=== PATIENT | male | born 1935 | race Caucasian/White ===

== ENCOUNTER 2017-12-01 17:55 | Observation (INO) | payer OTHER ==
[~2017-12-01] VITALS: Ht 170.2 cm; Wt 72.1 kg
[2017-12-01 18:20] LABS: ABSOLUTE BASOPHIL COUNT 0 /CUMM (0.0-0.2); ABSOLUTE EOSINOPHIL COUNT 0.3 /CUMM (0.0-0.7); ABSOLUTE LYMPH COUNT 1.1 /CUMM (1.2-3.4); ABSOLUTE MONOCYTE COUNT 0.9 /CUMM (0.10-0.60); BASOPHIL % 0.2 % (0.0-2.0); EOSINOPHIL % 4.9 % (0-5); GRANULOCYTE % 63.2 % (42.2-75.2); HEMATOCRIT 40.5 % (42-52); MEAN CORPUSCULAR HGB 30.6 PG (27.0-31.0); MEAN CORPUSCULAR VOLUME 92.7 FL (80.0-94.0); MEAN PLATELET VOLUME 7.8 FL (7.4-10.4); PLATELET COUNT 229 /CUMM (130-400); RBC DISTRIBUTION WIDTH 14.5 % (11.5-14.5); RED BLOOD CELL CT 4.37 /CUMM (4.70-6.10); WHITE BLOOD CELL COUNT 6.3 /CUMM (4.8-10.8)
--- NOTE | 2017-12-01 19:14 | RADIOLOGY REPORT ---
EXAMINATION: XR CHEST CLINICAL INFORMATION: Chest pain COMPARISON: None TECHNIQUE: 2 views of the chest were obtained. FINDINGS: The lungs are hyperinflated and diaphragms appear relatively flat. Trachea is midline in position. No evidence of interstitial lung disease, focal consolidation, mass , pneumothorax or pleural effusion. On the frontal view, the calcification projecting over the left anterior fourth rib and could represent costochondral junction calcification or a calcified pleural plaque. The cardiac silhouette is normal in size. The hilar contours are normal. The atherosclerotic aortic arch is slightly uncoiled. No acute skeletal findings. The visualized upper abdomen is unremarkable. IMPRESSION: 1. No acute cardiopulmonary findings. 2. Lungs appear hyperexpanded; chronic pulmonary emphysema is suspected.
--- NOTE | 2017-12-01 20:23 | ED CARDIAC/CP/PALPITATIONS ---
History of Present Illness General Chief Complaint: Chest Pain Stated Complaint: CP Source: patient, family, old records Exam Limitations: no limitations Vital Signs & Intake/Output Vital Signs & Intake/Output Vital Signs Date Time Temp Pulse Resp B/P B/P Pulse O2 O2 Flow FiO2 Mean Ox Delivery Rate 12/02 1055 76 12/02 0600 97.1 60 18 176/88 96 Room Air 12/02 0230 155/72 12/01 2353 170/82 12/01 2256 71 176/90 12/01 2256 97.3 71 18 176/90 97 Room Air 12/01 2149 180/76 12/01 2049 Room Air 12/01 2047 97.6 62 18 188/95 97 Room Air 12/01 1832 97.4 75 18 170/100 97 Room Air Room Air ED Intake and Output 12/02 0000 12/01 1200 Intake Total Output Total Balance Patient 72.121 kg Weight Weight Reported by Patient Measurement Method Allergies Coded Allergies: No Known Allergies (02/19/16) Reconcile Medications Lisinopril 10 MG TABLET 1 TAB PO DAILY htn (Reported) Triage Note: TRIAGE: 82 Y/O MALE PRESENTS C/O HIGH BLOOD PRESSURE, DIZZINESS LAST NIGHT. AT PRESENT, BP 170/100. Triage Nurses Notes Reviewed? 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 [place] dizzy and lightheaded last night, went to bed, and felt dizzy all day today, described as an unsteadiness. No vertigo. Also reports left perioral paresthesia. 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 Denies chest pain, palpitations, vertigo, vision changes, extremity weakness, numbness or paresthesia. Primary complaint is unsteadiness/dizziness. Had a similar episode years ago, seen at [facility] and sent home, never told he had a stroke or TIA. Past History Travel History Traveled to [place] past 21 day No Medical History Any Pertinent Medical History? see below for history Neurological: TRANSIENT GLOBAL AMNESIA EENT: glaucoma Cardiovascular: hypertension Respiratory: NONE Gastrointestinal: diverticulitis, GERD Hepatic: NONE Renal: KIDNEY STONE Musculoskeletal: NONE Psychiatric: NONE Endocrine: NONE Blood Disorders: NONE Cancer(s): SKIN CA, PROSTATE Surgical History Surgical History: N Psychosocial History What is your primary language Tunisian Tobacco Use: Never used ETOH Use: denies use Illicit Drug Use: denies illicit drug use Family History Hx Contributory? No Review of Systems Review of Systems Constitutional: Reports: no symptoms. EENTM: Reports: no symptoms. Respiratory: Reports: no symptoms. Cardiovascular: Reports: no symptoms. GI: Reports: no symptoms. Genitourinary: Reports: no symptoms. Musculoskeletal: Reports: no symptoms. Skin: Reports: no symptoms. Neurological/Psychological: Reports: no symptoms. Hematologic/Endocrine: Reports: no symptoms. Immunologic/Allergic: Reports: no symptoms. All Other Systems: Reviewed and Negative Physical Exam Physical Exam General Appearance: well developed/nourished, no apparent distress Head: atraumatic, normal appearance Eyes: Bilateral: normal appearance, PERRL, EOMI. 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 No CVA/TIA Diagnosis No Sepsis Present: No Sepsis Focused Exam Completed? No Progress Differential Diagnosis: AMI, aortic dissection, atrial fibrillation, cholecystitis, CHF/pulm edema, costochondritis, hyperkalemia, hypovolemia, hyperthyroid, hyperventilation, intracranial hemorrhage, musculoskeletal pain, myocarditis, pancreatitis, pericarditis, pneumonia, pneumothorax, PSVT, pulmonary embolism, PUD/GERD, PVCs/PACs, respiratory failure, rib fracture, sepsis, unstable angina, V-fib/V-Tach, WPW syndrome Plan of Care: Orders Procedure Date/time Status CBC WITHOUT DIFFERENTIAL 12/03 06 Active Heart Healthy Diet 12/02 B Active ECHOCARDIOGRAM 12/02 1227 Active Change service to 12/02 0750 Active TROPONIN LEVEL 12/02 06 Complete LIPID PANEL 12/02 06 Complete GLYCOSYLATED HGB 12/02 06 Complete CBC WITHOUT DIFFERENTIAL 12/02 06 Active BASIC ELECTROLYTES PLUS BUN&CR 12/02 06 Complete EKG 12/02 06 Active Lab Add-on Test 12/02 0239 Active TROPONIN LEVEL 12/02 0017 Complete EKG 12/02 0017 Active [id number] DOPPLER 12/02 UNK Active Gait Training, 15 Min 12/02 UNK Complete PT EVAL LOW COMPLEX 20 MIN 12/02 UNK Complete Lab Add-on Test 12/02 UNK Active OT EVAL LOW COMPLEX 30 MIN 12/02 UNK Complete Teach/Educate 12/01 2328 Active Pain Treatment and Response 12/01 2327 Active Nutritional Intake, Monitor 12/01 2328 Active Isolation 12/01 2328 Active Patient Care Conference 12/01 2328 Active NIH Stroke Scale 12/01 2258 Active Pathway - chart 12/01 223 Active House Staff 12/01 2233 Active Patient Data 12/01 223 Active Code Status 12/01 2233 Active Patient Data 12/[address] in observation 12/01 2203 Active ED Holding Orders 12/01 2203 Active Vital Signs 12/01 220 Active Code Status 12/01 2203 Complete Intake & Output 12/01 1831 Active PHOSPHORUS 12/01 1812 Complete MAGNESIUM 12/01 1812 Complete THYROID STIMULATING HORMONE 12/01 1805 Complete TROPONIN LEVEL 12/01 1805 Complete FREE T4 12/01 1805 Complete D-DIMER 12/01 1805 Complete COMPREHENSIVE METABOLIC PANEL 12/01 1805 Complete CBC WITHOUT DIFFERENTIAL 12/01 1805 Complete EKG 12/01 1757 Active PT Evaluate & Treat 12/01 UNK Active Occupational Tx Eval & Treat 12/01 UNK Active VTE Mechanical Prophylaxis 12/01 UNK Active Vital Signs 12/01 UNK Complete MISTAKE 12/01 UNK Complete Telemetry/Vending Supervisor 12/01 UNK Active Activity/Ambulation 12/01 UNK Active Current Medications Sig/Gigi Start time Last Medication Dose Stop Time Status Admin Aspirin Buffered 81 MG DAILY 12/02 1000 AC 12/02 (Ecotrin) 1054 Enoxaparin Sodium 40 MG DAILY 12/02 1000 AC 12/02 (Lovenox) 1054 Lisinopril 20 MG DAILY 12/02 1000 AC 12/02 (Prinivil) 1055 Magnesium Chloride 64 MG DAILY 12/02 1000 AC 12/02 (Slow-Mag) 12/03 1001 1055 Phosphate 250 MG PC AND AT BEDTIME 12/02 0900 AC 12/02 (Neutra-Phos) 1320 Atorvastatin Calcium 40 MG 1700 12/01 2330 AC 12/02 (Lipitor) 0051 Laboratory Tests 12/02/17 0635: Anion Gap 11, Estimated GFR > 60, BUN/Creatinine Ratio 25.6 H, Hemoglobin A1c 5.9 H, Troponin I 0.02, Triglycerides 91, Cholesterol 165, LDL Cholesterol, Calc 105, HDL Cholesterol 42, Cholesterol/HDL Ratio 4 12/02/17 0115: Troponin I < 0.01 12/01/17 1812: Anion Gap 12, Estimated GFR 58 L, BUN/Creatinine Ratio 20.8, Glucose 105 H, Calcium 8.6, Phosphorus 3.2, Magnesium 1.9, Total Bilirubin 0.3, AST 22, ALT 25, Alkaline Phosphatase 103, Troponin I < 0.01, Total Protein 6.3, Albumin 3.4 L, Globulin 2.9, Albumin/Globulin Ratio 1.2, TSH 2.260, Free T4 1.14, D-Dimer High Sensitivty 283 H, CBC w Diff NO MAN DIFF REQ, RBC 4.37 L, MCV 92.7, MCH 30.6, MCHC 33.0, RDW 14.5, MPV 7.8, Gran % 63.2, Lymphocytes % 17.5 L, Monocytes % 14.2 H, Eosinophils % 4.9, Basophils % 0.2, Absolute Granulocytes 4.0, Absolute Lymphocytes 1.1 L, Absolute Monocytes 0.9 H, Absolute Eosinophils 0.3, Absolute Basophils 0 Diagnostic Imaging: Viewed by Me: Radiology Read, CT Scan. Discussed w/RAD: Radiology Read, CT Scan. Radiology Impression: PATIENT: FILEMON ALEXANDER PRESENT AGE: 82 PATIENT ACCOUNT NO: [id number] : 33 LOCATION: [facility] ORDERING PHYSICIAN: Peng Farfan MD SERVICE DATE: 12/01/17 EXAM TYPE: CAT - CT HEAD WO IV CONTRAST EXAMINATION: CT HEAD WITHOUT CONTRAST CLINICAL INFORMATION: 82-year-old male with intractable vertigo and left facial paresthesia. Evaluate for bleed. COMPARISON: None TECHNIQUE: Contiguous axial imaging was performed from the skull base to vertex without intravenous administration of contrast. DLP: 634 mGy-cm FINDINGS: Brain parenchyma: No acute findings. Mild hypoattenuation in periventricular regions, compatible with chronic microvascular ischemic change. Vega-white matter differentiation is well preserved. No evidence of an acute major vascular territory infarction, hemorrhage, mass or midline shift. There is dense atherosclerotic calcification of vertebral arteries and cavernous carotid arteries.. Cerebrospinal fluid spaces: Mild atrophy of cerebral hemispheres associated with commensurate prominence of sulci and ventricles. No hydrocephalus or extra-axial fluid collections. Cerebellum and brainstem: Unremarkable. The 4th ventricle is midline in position. The cerebellopontine angles are normal. Calvarium and temporomandibular joints: Calvarium is intact. Mastoid air cells and middle ear cavities are well aerated. The TMJs are normal. Orbits, globes, and paranasal sinuses: Mucus retention cyst in mild mucosal thickening of inferior right maxillary sinus without air-fluid level. There is opacification of some of the bilateral ethmoid air cells. No acute intraorbital pathology. The lens has been extracted from the left globe. Other findings: No acute findings in the visualized extracranial soft tissues. IMPRESSION: 1. No acute intracranial pathology. 2. Findings suggestive of mild microangiopathy and chronic, mild cerebral atrophy. DICTATED BY: Delroy Garcia MD DATE/TIME DICTATED:12/01/172132 MEDICAL TERMINOLOGIST:ANTOINETTE DATE/TIME TRANSCRIBED:12/01/172132 CXR Impression: PATIENT: FILEMON ALEXANDER PRESENT AGE: 82 PATIENT ACCOUNT NO: [id number] : 33 LOCATION: [facility] ORDERING PHYSICIAN: Luis KO SERVICE DATE: 12/01/17 EXAM TYPE: RAD - XRY-CHEST XRAY , TWO VIEWS EXAMINATION: XR CHEST CLINICAL INFORMATION: Chest pain COMPARISON: None TECHNIQUE: 2 views of the chest were obtained. FINDINGS: The lungs are hyperinflated and diaphragms appear relatively flat. Trachea is midline in position. No evidence of interstitial lung disease, focal consolidation, mass , pneumothorax or pleural effusion. On the frontal view, the calcification projecting over the left anterior fourth rib and could represent costochondral junction calcification or a calcified pleural plaque. The cardiac silhouette is normal in size. The hilar contours are normal. The atherosclerotic aortic arch is slightly uncoiled. No acute skeletal findings. The visualized upper abdomen is unremarkable. IMPRESSION: 1. No acute cardiopulmonary findings. 2. Lungs appear hyperexpanded; chronic pulmonary emphysema is suspected. DICTATED BY: Delroy Garcia MD DATE/TIME DICTATED:12/01/171907 MEDICAL TERMINOLOGIST:PARHAM DATE/TIME TRANSCRIBED:12/01/171907 Initial ED EKG: NSR, no ST T wave changes Departure Departure Disposition: STILL A PATIENT Condition: Stable Clinical Impression Primary Impression: TIA (transient ischemic attack) Referrals: Unknown (PCP/Family) Departure Forms: Customer Survey General Discharge Information Observation Note Spoke With: Jaci Braga MD Physician Advisor Notified: MARCELO CRUMP DO Place Patient In: Non-ED OBS Care Area Rationale for Observation: My rational for observation is as follows concern for TIA/stroke, symptoms persisting, will require observation for telemetry, MRI head, neurology consult, carotid doppler. If symptoms improve and tests negative can be discharged within 23 hours. Critical Care Note Critical Care Note Critical Care Time: 30-74 min
--- NOTE | 2017-12-01 21:42 | CT SCAN REPORT ---
EXAMINATION: CT HEAD WITHOUT CONTRAST CLINICAL INFORMATION: 82-year-old male with intractable vertigo and left facial paresthesia. Evaluate for bleed. COMPARISON: None TECHNIQUE: Contiguous axial imaging was performed from the skull base to vertex without intravenous administration of contrast. DLP: 634 mGy-cm FINDINGS: Brain parenchyma: No acute findings. Mild hypoattenuation in periventricular regions, compatible with chronic microvascular ischemic change. Vega-white matter differentiation is well preserved. No evidence of an acute major vascular territory infarction, hemorrhage, mass or midline shift. There is dense atherosclerotic calcification of vertebral arteries and cavernous carotid arteries.. Cerebrospinal fluid spaces: Mild atrophy of cerebral hemispheres associated with commensurate prominence of sulci and ventricles. No hydrocephalus or extra-axial fluid collections. Cerebellum and brainstem: Unremarkable. The 4th ventricle is midline in position. The cerebellopontine angles are normal. Calvarium and temporomandibular joints: Calvarium is intact. Mastoid air cells and middle ear cavities are well aerated. The TMJs are normal. Orbits, globes, and paranasal sinuses: Mucus retention cyst in mild mucosal thickening of inferior right maxillary sinus without air-fluid level. There is opacification of some of the bilateral ethmoid air cells. No acute intraorbital pathology. The lens has been extracted from the left globe. Other findings: No acute findings in the visualized extracranial soft tissues. IMPRESSION: 1. No acute intracranial pathology. 2. Findings suggestive of mild microangiopathy and chronic, mild cerebral atrophy.
[2017-12-01] MEDS ORDERED: LISINOPRIL10 M1 PO (22:28)
--- NOTE | 2017-12-01 23:31 | History & Physical ---
Lemuel MARCUM,[facility] 12/01/17 5300: General Information and HPI MD Statement: I have seen and personally examined FILEMON ALEXANDER and documented this H&P. The patient is a 82 year old M who presented with a patient stated chief complaint of [dizziness and left perioral numbness]. Source of Information: patient, family Exam Limitations: no limitations History of Present Illness: Mr. Alexander is an 82-year-old gentleman with past medical history significant for transient global amnesia, hypertension, polyneuropathy, Diverticulitis, GERD , nephrolithiasis, skin cancer, prostate cancer status post radiotherapy(2007), anxiety and depression presents with dizziness/unsteadiness starting last night. According to the patient, he woke up around 2 AM last night feeling dizzy, nauseous and unsteady on his feet, felt better when lying down, and had a frontal headache 2-3/10 in intensity. Woke up this morning with similar dizziness, he would sway to one side and felt like he was about to pass out. Around noon he was found to have a blood pressure of 179/108 despite taking his lisinopril before going out for breakfast this morning. His blood pressure usually runs around 120s/70s. Also endorses intermittent left-sided perioral numbness that has been going on for the past 3-4 days. Denies any confusion/ altered mental status, slurred speech, vision changes, weakness or worsening numbness(has numbness/tingling in bilateral feet from peripheral neuropathy), loss of consciousness, or any recent falls. No recent change in medications, illnesses, diarrhea or any recent stressors. Also endorses left-sided pulsating chest pain ongoing for about 2 weeks. Pain is 3-4 in intensity, nonradiating, nonexertional(mostly comes at rest), has no aggravating factors, sometimes relieved with lisinopril.He has been having On and Off Palpitations for a while. Off note, patient has baseline gait abnormality, would lean towards one side when walking, because of his neuropathy. His neuropathy is likely secondary to chemical mckeon back in the [place]. Allergies/Medications Allergies: Coded Allergies: No Known Allergies (02/19/16) Home Med list Lisinopril 10 MG TABLET 1 TAB PO DAILY htn (Reported) Past History Travel History Traveled to [place] past 21 day No Medical History Neurological: TRANSIENT GLOBAL AMNESIA EENT: glaucoma Cardiovascular: hypertension Respiratory: NONE Gastrointestinal: diverticulitis, GERD Hepatic: NONE Renal: KIDNEY STONE Musculoskeletal: NONE Psychiatric: NONE Endocrine: NONE Blood Disorders: NONE Cancer(s): SKIN CA, PROSTATE Surgical History Surgical History: knee replacement Past Family/Social History Psychosocial History Where do you live? Home Who Do You Live With? spouse Services at Home: None Smoking Status: Never Smoked ETOH Use: denies use Illicit Drug Use: denies illicit drug use Functional Ability ADLs Independent: dressing, eating, toileting, bathing. Ambulation: independent IADLs Independent: shopping, housework, finances, food prep, telephone, transportation , medication admin. Review of Systems Review of Systems Constitutional: Reports: no symptoms. EENTM: Reports: no symptoms. Cardiovascular: Reports: no symptoms. Respiratory: Reports: no symptoms. GI: Reports: no symptoms. Genitourinary: Reports: no symptoms. Musculoskeletal: Reports: no symptoms. Skin: Reports: no symptoms. Neurological/Psychological: Reports: ataxia, headache, numbness, tingling. Hematologic/Endocrine: Reports: no symptoms. Immunologic/Allergic: Reports: no symptoms. All Other Systems: Reviewed and Negative Exam & Diagnostic Data Last 24 Hrs of Vital Signs/I&O Vital Signs Date Time Temp Pulse Resp B/P B/P Pulse O2 O2 Flow FiO2 Mean Ox Delivery Rate 12/016 71 176/90 12/01 225 97.3 71 18 176/90 97 Room Air 12/01 2148 180/76 12/01 2048 Room Air 12/01 2047 97.6 62 18 188/95 97 Room Air 12/01 1832 97.4 75 18 170/100 97 Room Air Room Air Physical Exam General Appearance Alert, Oriented X3, Cooperative, No Acute Distress Skin No Rashes, No Breakdown HEENT Atraumatic, PERRLA, EOMI, Mucous Membr. moist/pink, Bilateral Nystagmus Neck Supple, No JVD, No thryomegaly Cardiovascular Regular Rate, Normal S1, Normal S2, No Murmurs Lungs Clear to Auscultation, Normal Air Movement Abdomen Normal Bowel Sounds, Soft, No Tenderness Neurological Normal Speech, Strength at 5/5 X4 Ext, Normal Tone, Sensation Intact, Cranial Nerves 3-12 NL, Reflexes 2+, Cerebellar signs intact, Romberg positive, No pronator drift, Will sway towards left side while walking Extremities No Clubbing, No Cyanosis, No Edema, Normal Pulses Last 24 Hrs of Labs/Gustavo: Laboratory Tests 12/01/171811: Anion Gap 12, Estimated GFR 58 L, BUN/Creatinine Ratio 20.8, Glucose 105 H, Calcium 8.6, Total Bilirubin 0.3, AST 22, ALT 25, Alkaline Phosphatase 103, Troponin I < 0.01, Total Protein 6.3, Albumin 3.4 L, Globulin 2.9, Albumin/ Globulin Ratio 1.2, TSH 2.260, Free T4 1.14, D-Dimer High Sensitivty 283 H, CBC w Diff NO MAN DIFF REQ, RBC 4.37 L, MCV 92.7, MCH 30.6, MCHC 33.0, RDW 14.5, MPV 7.8, Gran % 63.2, Lymphocytes % 17.5 L, Monocytes % 14.2 H, Eosinophils % 4.9, Basophils % 0.2, Absolute Granulocytes 4.0, Absolute Lymphocytes 1.1 L, Absolute Monocytes 0.9 H, Absolute Eosinophils 0.3, Absolute Basophils 0 Diagnostic Data EKG Results Normal sinus Rhythm Heart Rate 67 QTc 418 CXR Results IMPRESSION: 1. No acute cardiopulmonary findings. 2. Lungs appear hyperexpanded; chronic pulmonary emphysema is suspected. Other Results CT HEAD WO IV CONTRAST IMPRESSION: 1. No acute intracranial pathology. 2. Findings suggestive of mild microangiopathy and chronic, mild cerebral atrophy. Assessment/Plan Assessment: Mr. Alexander is an 82-year-old gentleman with past medical history significant for transient global amnesia, hypertension, polyneuropathy, Diverticulitis, GERD , nephrolithiasis, skin cancer, prostate cancer status post radiotherapy(2007), anxiety and depression presents with dizziness/unsteadiness starting last night. A/P 1. Hypertensive urgency; Chest pain and perioral numbness could be secondary to the hypertension as the chest pain is relieved after taking lisinopril and his blood pressure usually runs within normal range. He had a blood pressure of 178 /103 on arrival. Less likely TIA as the perioral numbness started almost 3-4 days ago. Patient has had previous similar episodes of dizziness and gait instabilty associated with hypertension. +ve Romberg on exam. - We will observe the patient on telemetry floor for 24-48 hours. - Continuous cardiac monitoring to rule out any arrhythmias. - Continue lisinopril 10 mg daily. Might need to increase the dose depending on the blood pressure readings. - Cardiology consultation. - Troponins and EKG to rule out ACS. - Echocardiogram. - F/u Carotid Doppler ultrasound. - Neurology consult - MRI head. - Passed swallow Eval. 2. Dizziness with gait instability; Peripheral neuropathy or BPPV. Patient has neuropathy for the past 1 year that has been worked up at the [place] [facility]. Currently not on any medications. Gait instability also does not appear new and patient's has ongoing gait instability. Patient has positive nystagmus on both sides. - Obtain records from [place]. - PT OT consult. - Check orthostatics 3. Anxiety and depression; - Might benefit from a psych consult. DVT prophylaxis; subcutaneous Lovenox Patient is full code As Ranked By This Provider Problem List: 1. Hypertensive urgency 2. Neuropathy Core Measures/Misc (07/21) Acute Coronary Syndrome ACS Diagnosis: No Congestive Heart Failure Congestive Heart Failure Diagnosis No Cerebrovascular Accident CVA/TIA Diagnosis: No VTE (View Protocol) VTE Risk Factors Age>40 No Mechanical VTE Prophylaxis d/t N/A MechProphylax Ordered No VTE Pharm Prophylaxis d/t NA PharmProphylax ordered Sepsis (View protocol) Sepsis Present: No Estelle Jacinto MD 12/02/17 0007: Resident Review Statement Resident Statement: examined this patient, discussed with business development intern, agreed with business development intern Other Findings: This is a 82-year-old male with PMH of hypertension, 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 Patient states that around 2 AM yesterday he woke up dizzy and lightheaded. Subsequently, he went back to sleep and woke up in the a.m. with similar symptoms though less severe. He continued to feel dizzy all day and noted some particularly unsteady gait. He denies a sensation of spinning, rather he says that he has dizziness which causes him to be off balance more than usual. Note that he states that his gait has been increasingly unsteady over the past year and he is undergoing intensive workup in [place] including EMG etc. he states that has had a similar episode of dizziness and [facility]al [facility] At that time he was noted to be hypertensive as well. This a.m. took his usual dose of lisinopril and went for breakfast. A few hours later his dizziness worsened and measured BP at 179/108. His usual BP ranges around 120s to 130s. Patient mentions associated symptoms of chest pain and perioral numbness. He states the numbness is predominantly on the left side of his mouth. No associated facial droop besides his baseline due to squamous cell carcinoma excision. He has noted no slurring of speech or difficulty swallowing. The numbness started 3-4 days ago and it is intermittent in nature. He noted it associated with his dizziness and unsteadiness today. The chest pain has been present for 1-2 weeks. It's predominantly left sided underneath his left breast. He described it as a pulsating 3 out of 10 pain that does not radiate. It is nonexertional and lasts about 2-3 hours at a time. Patient states that taking his lisinopril alleviates the pain. Social history is significant for a distant history of pipe smoking. He used to work in the [place] and has considerable exposure to solvents and chemicals. He is followed by the [place] for possible polyneuropathy due to chemical exposure. Note the patient states that he has significant anxiety and he sees a psychiatrist. He is not on any pharmacologic management for this condition. He denies any worsening symptoms of anxiety in the last few weeks. He did have some mild headache TT and this AM. No change in vision, no new facial droop, no URI symptoms, no shortness of breath, no cough or sputum production, no abdominal pain, no change in bladder or bowel habits. Vitals: 97.4, 75, 18, 170/100-188/95, 97% on room air. Pertinent physical exam: HEENT: Pupils equal and reactive. EOMI. there is prominent lateral nystagmus on both sides. Patient does complain of dizziness when he sits up. Cardiovascular: Nml s1/s2; no murmurs Skin: Patient does have numerous keratotic lesions present on abdomen and bilateral lower extremities Respiratory:CTAB GI: BSX4, No tenderness on palpation. Bowel sounds present. Neuro: Sensation and motor intact. Cranial nerves II through XII intact. Positive Romberg. Positive nystagmus. His gait does list towards the left but patient states this is his baseline. He is unsteady while walking particularly turning. No broad-based gait. cerebellar signs normal reflexes brisk in bilateral upper and lower extremities LABS: BUN 25, creatinine 1.2. Negative troponin. Normal TSH. LFTs within normal limits. Chest x-ray shows evidence of possible chronic emphysematous. CT shows no acute intracranial pathology. EKG: Rate 67, normal sinus rhythm. No ST or T-wave changes. QTC 418. ASSESSMENT: This is an 82-year-old male with past medical history significant for hypertension, polyneuropathy, TGA, glaucoma, diverticulitis, GERD, nephrolithiasis, prostate and skin cancer, who comes in for chief complaint of dizziness associated with gait instability, perioral numbness, and intermittent non-exertional chest pain that seems to improve on lisinopril. It is difficult to evaluate patient's acute symptoms in context of this chronic worsening bilateral lower extremity neuropathy, and anxiety. At this time, patient's presentation is concerning for hypertensive urgency. He states that previous episodes of dizziness and instability are associated with high blood pressure and that he symptoms ameliorate with control of blood pressure. However given positive Romberg, acute worsening of his gait instability and nystagmus TIA, and BPPV cannot be ruled out. PLAN: Dizziness associated w/gait instability: We'll rule out hypertensive urgency, TIA, versus BPPV. Patient came in with blood pressure up to 188/95. Will gradually trend BP down over the next 24 hours. TFT wnl. First set of trops WNL. Got 1x Amlodipine 2.5 in ED. * Echo * MRI * Full dose aspirin followed by baby aspirin. * Statin * LFTs * Carotid ultrasound * Physical and occupational therapy. * Cardiology consult for hypertensive urgency * Continue lisinopril 10 mg per his daily dose. Continue to monitor blood pressure and increase dose as necessary. * Monitor on telemetry * TSH, free T4 * B12 * Lipid panel * HbA1c Neuropathy: Patient has bilateral right worse than left lower extremity neuropathy. He states that it is getting worse over the past 1 year. He now has some gait instability. At baseline he does not use any assistance for walking. [facility]. * Consider obtaining records * [facility]; Pls obtain records * PT/OT recx Omi MARCUM, [facility] 12/02/17 0521: Attending MD Review Statement Attending Statement Attending MD Statement: examined this patient, discuss w/resident/PA/ENVIRONMENTAL STUDIES DEPARTMENT CHAIR, agreed w/resident/PA/ENVIRONMENTAL STUDIES DEPARTMENT CHAIR, discussed with family, reviewed images, amended to note Attending Assessment/Plan: 82 yo M mainly follows at the [place] [facility], has a h/o HTN, thoracic aortic aneurysm, prostate cancer s/p radiation (2007), episode of transient global amnesia, is here for evaluation of dizziness/ lightheadedness, perioral numbness and gait instability. Last night, he had an episode of lightheadedness, near syncope, felt nauseous and unsteady. The episode lasted few minutes and he slept through the night. This AM when he woke up, his symptoms recurred. He was unsteady on his feet, and swaying to the left but this seems chronic though progressively worse. He had a mild bandlike frontal headache, he took his BP which was high 170/100's. This constellation of symptoms brought him to the ER. He also reports left sided perioral numbness that is ongoing for the past 3 days. No slurring of speech, vision changes, unilateral paresis or weakness. He then reports a 2-week h/o intermittent left sided chest pain, non-radiating, that persists for 2-3 hours, not related to food intake or exertion. Family reports that patient was seen at [place] emergency room twice in the past for similar dizziness, noted to have elevated BP and discharged after BP control. No previous h/o TIA or stroke. Patient is being followed by a Neurologist at the [place] and in under investigation of his chronic neuropathy resulting in gait instability. He has undergone an EMG, and attributes his neuropathy to chemical exposure while in the [place]. He also has anxiety/ depression but not on medications. 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 Vitals: afebrile, HR 60-70's, BP 170/100 --> 188/95 --> 176/82, sats 97% RA. Exam: AAO, in no distress, spech is clear, Chronic right facial droop from surgery for SCC. Cranial nerves are intact. Horizontal nystagmus++, patient reports feeling dizzy on moving from lying to sitting up or leaning forward. Power 5/5, sensation reduced 2/2 neuropathy. Plantars downgoing, reflexes 2+. No dysdiadochokinesia or past pointing. Gait sways to the left but patient reports this is baseline, Romberg's sways backwards. No pronator drift. Labs unremarkable except for BUN 25, with possible CKD. Troponin negative. EKG: sinus rhythm, with slightly peaked Twaves V2-V4. CXR: lungs hyperexpanded, chronic pulmonary emphysema. CT head: mild microangiopathy and chronic mild, cerebral atrophy. No acute findings. Assessment and plan: 1. Hypertensive urgency 2. Rule out TIA or cerebellar stroke (although seems less likely) 3. Dizziness, worsening gait instability with horizontal nystagumus, assess for peripheral causes of vertigo 4. Chronic neuropathy from ?chemical exposure 5. Intermittent left sided chest pain, rule out ACS - 23 hour observation on Telemetry - Neurochecks Q4 - Fall precautions - Monitor for arrhythmias - Keep K > 4.0, Mag > 2.0 - Please check orthostats - Goal SBP ~ 130-140's, ~ 25% reduction for now. - IV hydralazine as needed - Resume lisinopril at home dose in AM, can uptitrate based on BP - Echo, rule out ACS - Cardio consult in AM - Carotid dopplers and MRI brain in AM - Neuro consult - PT and OT eval - Check TSH, free T4, B12, lipid panel and HbA1c - Aspirin 81 and initiate statin - Passed bedside swallow - Please obtain [facility] DVT ppx Hep SC. Full code. Observation Initial Note - I have personally examined FILEMON ALEXANDER on 12/02/17 at 0523. The disposition of CATHERINEFILEMON is uncertain at this time and before a determination can be made, he requires a period of observation for the following reasons [hypertensive urgency, perioral numbness, gait instability, rule out TIA ]
[2017-12-01 23:53] VITALS: BP 170/82
[2017-12-02 02:30] VITALS: BP 155/72
[2017-12-02 06:00] VITALS: BP 176/88
--- NOTE | 2017-12-02 08:08 | PN-Observation ---
Linda Heath MD,[facility] 12/02/17 0807: Observation Note Observation Note _ I have personally examined FILEMON ALEXANDER. him disposition is uncertain at this time. Before a determination can be made, he requires continued observation for the following reasons dizziness. Assessment/Plan Assessment: Mr. Alexander is an 82-year-old gentleman with past medical history significant for transient global amnesia, hypertension, polyneuropathy, Diverticulitis, GERD , nephrolithiasis, skin cancer, prostate cancer status post radiotherapy(2007), anxiety and depression presents with dizziness/unsteadiness starting last night. Vitals at admission: 97.4, 75, 18, 170/100-188/95, 97% on room air. LABS at admission: BUN 25, creatinine 1.2. Negative troponin. Normal TSH. LFTs within normal limits. Chest x-ray shows evidence of possible chronic emphysematous. CT shows no acute intracranial pathology. EKG: Rate 67, normal sinus rhythm. No ST or T-wave changes. QTC 418. Imaging at admission: head CT: 1. No acute intracranial pathology. 2. Findings suggestive of mild microangiopathy and chronic, mild cerebral atrophy Patient was placed under observation in telemetry floor for management of following conditions: Hypertensive emergency Chest pain and perioral numbness could be secondary to the hypertension as the chest pain is relieved after taking lisinopril and his blood pressure usually runs within normal range. He had a blood pressure of 178/103 on arrival. Less likely TIA as the perioral numbness started almost 3-4 days ago. Patient has had previous similar episodes of dizziness and gait instabilty associated with hypertension. +ve Romberg on exam. Patient passed swallow evaluation. Troponins and EKG were trended to rule out ACS. MRI of the head: No acute pathology - We will observe continued observation for the next 24 hours due to further rulling out serious pathologies. - Continuous cardiac monitoring to rule out any arrhythmias. - Increase lisinopril to 20 mg daily. - Follow Cardiology - Follow Echocardiogram. - F/u Carotid Doppler ultrasound. - Follow Neurology consult Gait instability Dizziness with gait instability; Peripheral neuropathy or BPPV. Patient has neuropathy for the past 1 year that has been worked up at the [facility]. Currently not on any medications. Gait instability also does not appear new and patient's has ongoing gait instability. Patient has positive nystagmus on both sides. - Obtain records from [place]. - PT OT consult. - Check orthostatics Anxiety and depression; patient was doing fine, if continues to have symptoms we will consider psych consult -Consider psych consult. DVT prophylaxis; subcutaneous Lovenox Patient is full code heart healthy diet Problem List: 1. Hypertensive emergency Plan: As noted above Consulting Request: 1 Consulting Specialty: Cardiology Consulting Request: 2 Consulting Specialty: Neurology Discharge Plan Discharge Disposition: Extend for 24h Stable for Discharge? No Anticipated Discharge (Day): tomorrow Subjective Follow-up For: Hypertensive emergency Subjective: Patient visited today, was lying in bed comfortably in no acute distress, was alert and oriented. Patient reproted improved chest pain and perioral numbness. No fever or chills, no shortness of breathing, no chest pain, no other events. MRI was done without any acute pathology, pending echo, neurology and cardiology consult we start discharge planning for tomorrow. Review of Systems Constitutional: Reports: see HPI. Objective Last 24 Hrs of Vital Signs/I&O Vital Signs Date Time Temp Pulse Resp B/P B/P Pulse O2 O2 Flow FiO2 Mean Ox Delivery Rate 12/02 1055 76 12/02 0600 97.1 60 18 176/88 96 Room Air 12/02 0230 155/72 12/01 2353 170/82 12/01 2256 71 176/90 12/01 2256 97.3 71 18 176/90 97 Room Air 12/01 2149 180/76 12/01 2049 Room Air 12/01 2048 97.6 62 18 188/95 97 Room Air 12/01 1832 97.4 75 18 170/100 97 Room Air Room Air Intake & Output 12/02 1600 12/02 0800 12/02 0000 Intake Total 100 Output Total 400 Balance -300 Intake, Oral 100 Output, Urine 400 Patient 159 lb Weight Weight Reported by Patient Measurement Method Physical Exam General Appearance: Alert, Oriented X3, Cooperative, No Acute Distress Skin: No Significant Lesion Skin Temp/Moisture Exam: Warm/Dry Sepsis Skin Exam (color): Normal for Ethnicity HEENT: Atraumatic, EOMI, Mucous Membr. moist/pink Cardiovascular: Regular Rate, Normal S1, Normal S2 Lungs: Clear to Auscultation Abdomen: Soft, No Tenderness Neurological: Normal Speech, Sensation Intact, Cranial Nerves 3-12 NL, unstable gait, tends to sway to left side. Extremities: No Edema Current Medications: Current Medications Sig/Gigi Start time Last Medication Dose Route Stop Time Status Admin Amlodipine Besylate 2.5 MG ONCE ONE 12/01 2214 DC 12/01 PO 12/01 Aspirin 0 .STK-MED ONE 12/01 2253 DC PO Aspirin 325 MG ONCE ONE 12/01 2229 DC 12/01 PO 12/01 2230 225 Aspirin Buffered 81 MG DAILY 12/02 1000 AC 12/02 PO 1054 Atorvastatin Calcium 40 MG 1700 12/01 2330 AC 12/02 PO 0051 Calcium Carbonate 500 MG ONCE ONE 12/02 0015 DC 12/02 PO 12/02 0016 0051 Enoxaparin Sodium 40 MG DAILY 12/02 1000 AC 12/02 SC 1054 Lisinopril 10 MG DAILY 12/02 1000 DC PO Lisinopril 20 MG DAILY 12/02 1000 AC 12/02 PO 1055 Magnesium Chloride 64 MG DAILY 12/02 1000 AC 12/02 PO 12/03 1001 1055 Phosphate 250 MG PC AND AT BEDTIME 12/02 0900 AC 12/02 PO 1320 Last 24 Hrs of Labs/Mics: Laboratory Tests 12/02/17 0635: Anion Gap 11, Estimated GFR > 60, BUN/Creatinine Ratio 25.6 H, Hemoglobin A1c 5.9 H, Troponin I 0.02, Triglycerides 91, Cholesterol 165, LDL Cholesterol, Calc 105, HDL Cholesterol 42, Cholesterol/HDL Ratio 4 12/02/17 0115: Troponin I < 0.01 12/01/17 1812: Anion Gap 12, Estimated GFR 58 L, BUN/Creatinine Ratio 20.8, Glucose 105 H, Calcium 8.6, Phosphorus 3.2, Magnesium 1.9, Total Bilirubin 0.3, AST 22, ALT 25, Alkaline Phosphatase 103, Troponin I < 0.01, Total Protein 6.3, Albumin 3.4 L, Globulin 2.9, Albumin/Globulin Ratio 1.2, TSH 2.260, Free T4 1.14, D-Dimer High Sensitivty 283 H, CBC w Diff NO MAN DIFF REQ, RBC 4.37 L, MCV 92.7, MCH 30.6, MCHC 33.0, RDW 14.5, MPV 7.8, Gran % 63.2, Lymphocytes % 17.5 L, Monocytes % 14.2 H, Eosinophils % 4.9, Basophils % 0.2, Absolute Granulocytes 4.0, Absolute Lymphocytes 1.1 L, Absolute Monocytes 0.9 H, Absolute Eosinophils 0.3, Absolute Basophils 0 Karina Head 12/02/17 1417: Attending MD Review Statement Attending Statement Attending MD Statement: examined this patient, discuss w/resident/PA/ORACLE ADF DEVELOPER, agreed w/resident/PA/ORACLE ADF DEVELOPER, reviewed EMR data (avail), discussed w/case mgmt Attending Assessment/Plan: TIA/ Stroke in pt who presented with high bp and perioral numbness and gait instability. Pt says his symptoms are mostly resolved. His bp remains little high and we have increased his lisinopril to 20mg qd. His creatinine is better at 0.9 from 1.2 yesterday. MRI brain shows - "No diffusion abnormalities are identified to suggest an acute or subacute infarct. The ventricles are normal in size. No mass effect or midline shift is seen. Mild chronic white matter microangiopathic changes are noted." Carotid ultrasound shows- "Plaque is present in the internal carotid arteries but velocity measurements are normal and there is no evidence to suggest a hemodynamically significant stenosis of greater than 50%" will await neuro consult and will f/u on echocardiogram results. d/w pt the care plan. d/w pt the care plan.
--- NOTE | 2017-12-02 10:58 | MRI REPORT ---
EXAMINATION: MR BRAIN WITHOUT CONTRAST CLINICAL INFORMATION: Rule out stroke. Gait changes and perioral numbness. COMPARISON: Head CT from 12/01/2017. TECHNIQUE: Multiplanar, multisequence imaging of the brain was performed without contrast. FINDINGS: No diffusion abnormalities are identified to suggest an acute or subacute infarct. The ventricles are normal in size. No mass effect or midline shift is seen. Mild chronic white matter microangiopathic changes are noted. No extra-axial fluid collections are seen. The brainstem and cerebellum are relatively normal. The gradient refocused acquisition is normal. The craniovertebral junction, marrow signal, and midline structures are normal. The major intracranial flow voids at the level of the rincon of [place] are preserved. The dural venous sinus flow voids are maintained. The mastoid air cells and paranasal sinuses are well aerated. IMPRESSION: No acute intracranial process. Mild chronic white matter migraines junk the.
--- NOTE | 2017-12-02 12:31 | Cons- Cardiology ---
General Information and HPI Consulting Request Date of Consult: 12/02/17 Requested By: Karina Head MD Reason for Consult: Hypertensive urgency History of Present Illness: The patient is an 82-year-old male with history of hypertension resenting with numbness on the left side of his mouth for the past several days. He also notes headache and unsteady gait. He is found to have severely elevated blood pressure. He reports feeling better now, and ambulate into the bathroom without difficulty. He checks his blood pressure regularly at home. Until several days ago his blood pressure was generally normal on his 10 mg dose of lisinopril. Over the past 1-2 days he began having high blood pressure readings at home of 179/108, and similar readings. He notes waxing and waning sharp left-sided chest pain which is a 3 out of 10 in severity and does not radiate. This has been intermittent for the past few days. No shortness of breath. No syncope. No orthopnea. No nausea or vomiting. Allergies/Medications Allergies: Coded Allergies: No Known Allergies (02/19/16) Home Med List: Lisinopril 10 MG TABLET 1 TAB PO DAILY htn (Reported) Current Medications: Current Medications Sig/Gigi Start time Last Medication Dose Route Stop Time Status Admin Amlodipine Besylate 2.5 MG ONCE ONE 12/01 2214 DC 12/01 PO 12/01 2215 2256 Aspirin 0 .STK-MED ONE 12/01 2254 DC PO Aspirin 325 MG ONCE ONE 12/01 2230 DC 12/01 PO 12/01 2231 2256 Aspirin Buffered 81 MG DAILY 12/02 1000 AC 12/02 PO 1054 Atorvastatin Calcium 40 MG 1700 12/01 2330 AC 12/02 PO 1624 Calcium Carbonate 500 MG ONCE ONE 12/02 0015 DC 12/02 PO 12/02 0016 0051 Enoxaparin Sodium 40 MG DAILY 12/02 1000 AC 12/02 SC 1054 Lisinopril 10 MG DAILY 12/02 1000 DC PO Lisinopril 20 MG DAILY 12/02 1000 AC 12/02 PO 1055 Magnesium Chloride 64 MG DAILY 12/02 1000 AC 12/02 PO 12/03 1001 1055 Phosphate 250 MG PC AND AT BEDTIME 12/02 0900 AC 12/02 PO 1320 Review of Systems Review of Systems: No rash. No tremor. No melena. All other systems were reviewed, and were noted to be negative. Past History Travel History Traveled to [place] past 21 day No Medical History Blood Transfusion Hx: Yes Neurological: TRANSIENT GLOBAL AMNESIA EENT: glaucoma Cardiovascular: hypertension Respiratory: NONE Gastrointestinal: diverticulitis, GERD Hepatic: NONE Renal: KIDNEY STONE Musculoskeletal: NONE Psychiatric: NONE Endocrine: NONE Blood Disorders: NONE Cancer(s): SKIN CA, PROSTATE Surgical History Surgical History: knee replacement Family History Family History Reviewed? Family history was reviewed with the patient and was negative for any factors contributing to the current admission. Psychosocial History Where Do You Live? Home Who Do You Live With? spouse Services at Home: None Smoking Status: Never Smoked ETOH Use: denies use Illicit Drug Use: denies illicit drug use Functional Ability ADLs Independent: dressing, eating, toileting, bathing. Ambulation: independent IADLs Independent: shopping, housework, finances, food prep, telephone, transportation , medication admin. Exam & Diagnostic Data Vital Signs and I&O Vital Signs Date Time Temp Pulse Resp B/P B/P Pulse O2 O2 Flow FiO2 Mean Ox Delivery Rate 12/02 1730 97.8 66 18 176/90 99 Room Air 12/02 1449 98.0 74 18 154/88 97 Room Air 12/02 1055 76 12/02 0600 97.1 60 18 176/88 96 Room Air 12/02 0230 155/72 12/01 2353 170/82 12/01 2256 71 176/90 12/01 2256 97.3 71 18 176/90 97 Room Air 12/01 2149 180/76 12/01 2049 Room Air 12/01 204 97.6 62 18 188/95 97 Room Air Intake & Output 12/02 1600 12/02 0800 12/02 0000 12/01 1600 12/01 0800 12/01 0000 Intake Total 200 100 Output Total 400 Balance 200 -300 Intake, Oral 200 100 Output, Urine 400 Patient 159 lb Weight Weight Reported by Patient Measurement Method Physical Exam: Gen: The patient is in no acute distress HEENT: Normal nose, ears, and oropharynx. Pupils equal bilaterally. Conjunctiva normal. Neck: Supple with no JVD, no masses, and no thyromegaly Lungs: Clear to auscultation with normal respiratory effort Heart: RRR, S1, S2, no murmurs. No peripheral edema, 2+ pulses in the lower extremities bilaterally Abdomen: Soft, nontender, no masses. No hepatomegaly. No splenomegaly Extremities: No clubbing or cyanosis. Normal muscle strength in the upper and lower extremities Skin: Normal skin turgor with no skin ulcers or lesions noted. Neuro: Cranial nerves intact. Sensation intact Psych: Alert and oriented - 3 with appropriate affect Labs/Gustavo Results: Laboratory Tests 12/02 12/02 12/01 0635 0115 1812 Chemistry Sodium (137 - 145 mmol/L) 143 144 Potassium (3.5 - 5.1 mmol/L) 4.2 4.1 Chloride (98 - 107 mmol/L) 106 106 Carbon Dioxide (22 - 30 mmol/L) 26 26 Anion Gap (5 - 16) 11 12 BUN (9 - 20 mg/dL) 23 H 25 H Creatinine (0.7 - 1.2 mg/dL) 0.9 1.2 Estimated GFR (>60 ml/min) > 60 58 L BUN/Creatinine Ratio (7 - 25 %) 25.6 H 20.8 Glucose (65 - 99 mg/dL) 105 H Hemoglobin A1c (4.2 - 5.8 %) 5.9 H Calcium (8.4 - 10.2 mg/dL) 8.6 Phosphorus (2.5 - 4.5 mg/dL) 3.2 Magnesium (1.6 - 2.3 mg/dL) 1.9 Total Bilirubin (0.2 - 1.3 mg/dL) 0.3 AST (17 - 59 U/L) 22 ALT (21 - 72 U/L) 25 Alkaline Phosphatase (< 127 U/L) 103 Troponin I (<0.11 ng/ml) 0.02 < 0.01 < 0.01 Total Protein (6.3 - 8.2 g/dL) 6.3 Albumin (3.5 - 5.0 g/dL) 3.4 L Globulin (1.9 - 4.2 gm/dL) 2.9 Albumin/Globulin Ratio (1.1 - 2.2 %) 1.2 Triglycerides (<150 mg/dL) 91 Cholesterol (< 200 MG/DL) 165 LDL Cholesterol, Calc (65 - 129 mg/dL) 105 HDL Cholesterol (40 - 60 mg/dL) 42 Cholesterol/HDL Ratio (0.00 - 4.88 %) 4 TSH (0.270 - 4.200 uIU/mL) 2.260 Free T4 (0.85 - 1.93 ng/dL) 1.14 Coagulation D-Dimer High Sensitivty (0 - 243 ng/ml) 283 H Hematology CBC w Diff NO MAN DIFF REQ WBC (4.8 - 10.8 /CUMM) 6.3 RBC (4.70 - 6.10 /CUMM) 4.37 L Hgb (14.0 - 18.0 G/DL) 13.4 L Hct (42 - 52 %) 40.5 L MCV (80.0 - 94.0 FL) 92.7 MCH (27.0 - 31.0 PG) 30.6 MCHC (33.0 - 37.0 G/DL) 33.0 RDW (11.5 - 14.5 %) 14.5 Plt Count (130 - 400 /CUMM) 229 MPV (7.4 - 10.4 FL) 7.8 Gran % (42.2 - 75.2 %) 63.2 Lymphocytes % (20.5 - 51.1 %) 17.5 L Monocytes % (1.7 - 9.3 %) 14.2 H Eosinophils % (0 - 5 %) 4.9 Basophils % (0.0 - 2.0 %) 0.2 Absolute Granulocytes (1.4 - 6.5 /CUMM) 4.0 Absolute Lymphocytes (1.2 - 3.4 /CUMM) 1.1 L Absolute Monocytes (0.10 - 0.60 /CUMM) 0.9 H Absolute Eosinophils (0.0 - 0.7 /CUMM) 0.3 Absolute Basophils (0.0 - 0.2 /CUMM) 0 Diagnostic Data EKG Results EKG tracings in the patient reviewed, reveals normal sinus rhythm at 57, first- degree AV block, inferior infarct age undetermined CXR Results The lungs are hyperinflated and diaphragms appear relatively flat. Trachea is midline in position. No evidence of interstitial lung disease, focal consolidation, mass , pneumothorax or pleural effusion. On the frontal view, the calcification projecting over the left anterior fourth rib and could represent costochondral junction calcification or a calcified pleural plaque. The cardiac silhouette is normal in size. The hilar contours are normal. The atherosclerotic aortic arch is slightly uncoiled. No acute skeletal findings. The visualized upper abdomen is unremarkable. Other Results Head CT: 1. No acute intracranial pathology. 2. Findings suggestive of mild microangiopathy and chronic, mild cerebral atrophy. MRI of the head: No acute intracranial process. Carotid Doppler study: IMPRESSION: Plaque is present in the internal carotid arteries but velocity measurements are normal and there is no evidence to suggest a hemodynamically significant stenosis of greater than 50% diameter reduction. Assessment/Plan Assessment/Plan Assessment: The patient is an 82-year-old male with history of hypertension presenting with hypertensive urgency, and focal neurologic symptoms with possible TIA. There is no evidence of CVA. Lisinopril dose has been increased from 10 mg to 20 mg daily, and the blood pressure remains elevated. Patient complains of atypical chest pain. Myocardial infarction has been ruled out with negative troponin 3 Recommendations: * Aspirin 81 mg daily * Echocardiogram * Continue lisinopril 20 mg daily * Add amlodipine 5 mg daily for additional blood pressure control Consult Acknowledgment - Thank you for your consult request.
--- NOTE | 2017-12-02 13:54 | ULTRASOUND REPORT ---
EXAMINATION: DUPLEX BILATERAL CAROTID ULTRASOUND CLINICAL INFORMATION: CVA. Perioral numbness COMPARISON: None. TECHNIQUE: Duplex bilateral carotid US was performed using real-time ultrasound and Doppler techniques (integrating B-mode 2D vascular images, Doppler spectral analysis and color flow Doppler imaging). These techniques were utilized to interrogate the extracranial carotid and vertebral arteries bilaterally. The degree of stenosis is based off criteria similar to NASCET. FINDINGS: 1. On the right: Plaque is present at the carotid bifurcation but velocity measurements are normal and do not suggest a stenosis of greater than 50% diameter reduction in the right ICA. The right external carotid artery shows no significant stenosis. The vertebral artery is patent demonstrating antegrade flow. 2. On the left: Plaque is present at the carotid bifurcation but velocity measurements are normal and do not suggest a stenosis of greater than 50% diameter reduction in the left ICA. The left external carotid artery shows no significant stenosis. The vertebral artery is patent demonstrating antegrade flow. IMPRESSION: Plaque is present in the internal carotid arteries but velocity measurements are normal and there is no evidence to suggest a hemodynamically significant stenosis of greater than 50% diameter reduction.
--- NOTE | 2017-12-02 16:13 | Cons- Neurology ---
General Information and HPI Consulting Request Date of Consult: 12/02/17 Requested By: Karina Head MD Reason for Consult: Numbness left lips, dizziness Source of Information: patient, family, old records Exam Limitations: no limitations History of Present Illness: 82/M reports not feeling well with numbness in the left side of mouth on/off the last few days, worse last PM with dizziness, imbalance walking and headache. Symptoms were waxing and waning. Found to have high BP. Now, symptoms nearly completely resolved, numbness gone and just walked to BR without difficulty Allergies/Medications Allergies: Coded Allergies: No Known Allergies (02/19/16) Home Med List: Lisinopril 10 MG TABLET 1 TAB PO DAILY htn (Reported) Current Medications: Current Medications Sig/Gigi Start time Last Medication Dose Route Stop Time Status Admin Amlodipine Besylate 2.5 MG ONCE ONE 12/01 2215 DC 12/01 PO 12/01 221 2256 Aspirin 0 .STK-MED ONE 12/01 2254 DC PO Aspirin 325 MG ONCE ONE 12/01 2230 DC 12/01 PO 12/01 2231 2256 Aspirin Buffered 81 MG DAILY 12/02 1000 AC 12/02 PO 1054 Atorvastatin Calcium 40 MG 1700 12/01 2330 AC 12/02 PO 0051 Calcium Carbonate 500 MG ONCE ONE 12/02 0015 DC 12/02 PO 12/02 0016 0051 Enoxaparin Sodium 40 MG DAILY 12/02 1000 AC 12/02 SC 1054 Lisinopril 10 MG DAILY 12/02 1000 DC PO Lisinopril 20 MG DAILY 12/02 1000 AC 12/02 PO 1055 Magnesium Chloride 64 MG DAILY 12/02 1000 AC 12/02 PO 12/03 1001 1055 Phosphate 250 MG PC AND AT BEDTIME 12/02 0900 AC 12/02 PO 1320 Review of Systems Review of Systems: No headache now, vision OK, no vertigo, no chest pain, dyspnea, GI or symptoms. No bruising, some arthralgias, mood OK Past History Travel History Traveled to [place] past 21 day No Medical History Blood Transfusion Hx: Yes Neurological: TRANSIENT GLOBAL AMNESIA EENT: glaucoma Cardiovascular: hypertension Respiratory: NONE Gastrointestinal: diverticulitis, GERD Hepatic: NONE Renal: KIDNEY STONE Musculoskeletal: NONE Psychiatric: NONE Endocrine: NONE Blood Disorders: NONE Cancer(s): SKIN CA, PROSTATE Surgical History Surgical History: knee replacement Psychosocial History Where Do You Live? Home Who Do You Live With? spouse Services at Home: None Smoking Status: Never Smoked ETOH Use: denies use Illicit Drug Use: denies illicit drug use Functional Ability ADLs Independent: dressing, eating, toileting, bathing. Ambulation: independent IADLs Independent: shopping, housework, finances, food prep, telephone, transportation , medication admin. Exam & Diagnostic Data Vital Signs and I&O Vital Signs Date Time Temp Pulse Resp B/P B/P Pulse O2 O2 Flow FiO2 Mean Ox Delivery Rate 12/02 1449 98.0 74 18 154/88 97 Room Air 12/02 1055 76 12/02 0600 97.1 60 18 176/88 96 Room Air 12/02 0230 155/72 12/01 2353 170/82 12/01 2256 71 176/90 12/01 2256 97.3 71 18 176/90 97 Room Air 12/01 2149 180/76 12/01 2049 Room Air 12/01 2048 97.6 62 18 188/95 97 Room Air 12/01 1832 97.4 75 18 170/100 97 Room Air Room Air Intake & Output 12/02 1600 12/02 0800 12/02 0000 Intake Total 100 Output Total 400 Balance -300 Intake, Oral 100 Output, Urine 400 Patient 159 lb Weight Weight Reported by Patient Measurement Method Physical Exam: Alert, oriented,speech and language normal, recall and affect OK VFF. EOMI, P4ERRL, fundi OK facial sensation norml bilat mild assymetry of lower face, reduced R NLF since removal of skin cancer in region lower CN normal power, tone, coordination, extremity sensation and DTRs normal gait deferred Last 48 Hours of Lab Results: Laboratory Tests 12/02 12/02 12/01 0635 0115 1812 Chemistry Sodium (137 - 145 mmol/L) 143 144 Potassium (3.5 - 5.1 mmol/L) 4.2 4.1 Chloride (98 - 107 mmol/L) 106 106 Carbon Dioxide (22 - 30 mmol/L) 26 26 Anion Gap (5 - 16) 11 12 BUN (9 - 20 mg/dL) 23 H 25 H Creatinine (0.7 - 1.2 mg/dL) 0.9 1.2 Estimated GFR (>60 ml/min) > 60 58 L BUN/Creatinine Ratio (7 - 25 %) 25.6 H 20.8 Glucose (65 - 99 mg/dL) 105 H Hemoglobin A1c (4.2 - 5.8 %) 5.9 H Calcium (8.4 - 10.2 mg/dL) 8.6 Phosphorus (2.5 - 4.5 mg/dL) 3.2 Magnesium (1.6 - 2.3 mg/dL) 1.9 Total Bilirubin (0.2 - 1.3 mg/dL) 0.3 AST (17 - 59 U/L) 22 ALT (21 - 72 U/L) 25 Alkaline Phosphatase (< 127 U/L) 103 Troponin I (<0.11 ng/ml) 0.02 < 0.01 < 0.01 Total Protein (6.3 - 8.2 g/dL) 6.3 Albumin (3.5 - 5.0 g/dL) 3.4 L Globulin (1.9 - 4.2 gm/dL) 2.9 Albumin/Globulin Ratio (1.1 - 2.2 %) 1.2 Triglycerides (<150 mg/dL) 91 Cholesterol (< 200 MG/DL) 165 LDL Cholesterol, Calc (65 - 129 mg/dL) 105 HDL Cholesterol (40 - 60 mg/dL) 42 Cholesterol/HDL Ratio (0.00 - 4.88 %) 4 TSH (0.270 - 4.200 uIU/mL) 2.260 Free T4 (0.85 - 1.93 ng/dL) 1.14 Coagulation D-Dimer High Sensitivty (0 - 243 ng/ml) 283 H Hematology CBC w Diff NO MAN DIFF REQ WBC (4.8 - 10.8 /CUMM) 6.3 RBC (4.70 - 6.10 /CUMM) 4.37 L Hgb (14.0 - 18.0 G/DL) 13.4 L Hct (42 - 52 %) 40.5 L MCV (80.0 - 94.0 FL) 92.7 MCH (27.0 - 31.0 PG) 30.6 MCHC (33.0 - 37.0 G/DL) 33.0 RDW (11.5 - 14.5 %) 14.5 Plt Count (130 - 400 /CUMM) 229 MPV (7.4 - 10.4 FL) 7.8 Gran % (42.2 - 75.2 %) 63.2 Lymphocytes % (20.5 - 51.1 %) 17.5 L Monocytes % (1.7 - 9.3 %) 14.2 H Eosinophils % (0 - 5 %) 4.9 Basophils % (0.0 - 2.0 %) 0.2 Absolute Granulocytes (1.4 - 6.5 /CUMM) 4.0 Absolute Lymphocytes (1.2 - 3.4 /CUMM) 1.1 L Absolute Monocytes (0.10 - 0.60 /CUMM) 0.9 H Absolute Eosinophils (0.0 - 0.7 /CUMM) 0.3 Absolute Basophils (0.0 - 0.2 /CUMM) 0 Imaging/Other Studies: Brain MRI: No diffusion abnormalities are identified to suggest an acute or subacute infarct. The ventricles are normal in size. No mass effect or midline shift is seen. Mild chronic white matter microangiopathic changes are noted. No extra-axial fluid collections are seen. The brainstem and cerebellum are relatively normal. Dopplers, atherosclerotic change, no significant stenosis Assessment/Plan Assessment: Hypertensive urgency with focal neurological symptoms (numbness left lips), AGUDELO and dizziness, waxing and waning for 2-3 days, without infarction. Vascular risk factors present. No evidence of CVA Recommendations: ASA 81 EC QD close observation and treatment of BP no additional neurodiagnostic testing or evalution at this time. Consult Acknowledgment - Thank you for your consult request.
[2017-12-02 17:30] VITALS: BP 176/90
[2017-12-02 22:48] VITALS: BP 162/86
[2017-12-03 05:41] VITALS: BP 122/82
[2017-12-03 05:43] VITALS: BP 122/82
--- NOTE | 2017-12-03 07:24 | PN- Housestaff ---
Assessment/Plan Assessment: Mr. Lilly is an 82-year-old gentleman with past medical history significant for transient global amnesia, hypertension, polyneuropathy, Diverticulitis, GERD , nephrolithiasis, skin cancer, prostate cancer status post radiotherapy(2007), anxiety and depression presents with dizziness/unsteadiness starting last night. Vitals at admission: 97.4, 75, 18, 170/100-188/95, 97% on room air. LABS at admission: BUN 25, creatinine 1.2. Negative troponin. Normal TSH. LFTs within normal limits. Chest x-ray shows evidence of possible chronic emphysematous. CT shows no acute intracranial pathology. EKG: Rate 67, normal sinus rhythm. No ST or T-wave changes. QTC 418. Imaging at admission: head CT: 1. No acute intracranial pathology. 2. Findings suggestive of mild microangiopathy and chronic, mild cerebral atrophy Patient was placed under observation in telemetry floor for management of following conditions: Hypertensive emergency Chest pain and perioral numbness could be secondary to the hypertension as the chest pain is relieved after taking lisinopril and his blood pressure usually runs within normal range. He had a blood pressure of 178/103 on arrival. Less likely TIA as the perioral numbness started almost 3-4 days ago. Patient has had previous similar episodes of dizziness and gait instabilty associated with hypertension. +ve Romberg on exam. Patient passed swallow evaluation. Troponins and EKG were trended to rule out ACS. MRI of the head: No acute pathology - We will observe continued observation for the next 24 hours due to further rulling out serious pathologies. - Continuous cardiac monitoring to rule out any arrhythmias. - Increase lisinopril to 20 mg daily. - Follow Cardiology - Follow Echocardiogram. - F/u Carotid Doppler ultrasound. - Follow Neurology consult Gait instability Dizziness with gait instability; Peripheral neuropathy or BPPV. Patient has neuropathy for the past 1 year that has been worked up at the [facility]. Currently not on any medications. Gait instability also does not appear new and patient's has ongoing gait instability. Patient has positive nystagmus on both sides. - Obtain records from [place]. - PT OT consult. - Check orthostatics Anxiety and depression; patient was doing fine, if continues to have symptoms we will consider psych consult -Consider psych consult. DVT prophylaxis; subcutaneous Lovenox Patient is full code heart healthy diet Consulting Request: Consulting Specialty: Neurology
--- NOTE | 2017-12-03 07:25 | PN-Observation ---
Linda Heaht MD,Ami 12/03/17 0725: Observation Note Observation Note _ I have personally examined FILEMON ALEXANDER. him disposition is uncertain at this time. Before a determination can be made, he requires continued observation for the following reasons Dizziness. Assessment/Plan Assessment: Mr. Alexander is an 82-year-old gentleman with past medical history significant for transient global amnesia, hypertension, polyneuropathy, Diverticulitis, GERD , nephrolithiasis, skin cancer, prostate cancer status post radiotherapy(2007), anxiety and depression presents with dizziness/unsteadiness starting last night. Vitals at admission: 97.4, 75, 18, 170/100-188/95, 97% on room air. LABS at admission: BUN 25, creatinine 1.2. Negative troponin. Normal TSH. LFTs within normal limits. Chest x-ray shows evidence of possible chronic emphysematous. CT shows no acute intracranial pathology. EKG: Rate 67, normal sinus rhythm. No ST or T-wave changes. QTC 418. Imaging at admission: head CT: 1. No acute intracranial pathology. 2. Findings suggestive of mild microangiopathy and chronic, mild cerebral atrophy Patient was placed under observation in telemetry floor for management of following conditions: Hypertensive emergency Chest pain and perioral numbness could be secondary to the hypertension as the chest pain is relieved after taking lisinopril and his blood pressure usually runs within normal range. He had a blood pressure of 178/103 on arrival. Less likely TIA as the perioral numbness started almost 3-4 days ago. Patient has had previous similar episodes of dizziness and gait instabilty associated with hypertension. +ve Romberg on exam. Patient passed swallow evaluation. Troponins and EKG were trended to rule out ACS. MRI of the head: No acute pathology ECho: Normal size left ventricle. Proximal thickening of the septum. Normal left ventricular ejection fraction visually estimated at > 60 %. Abnormal relaxation filling pattern of the left ventricle for age (stage 1 diastolic dysfunction). Mild mitral regurgitation. Trace aortic regurgitation. Trace tricuspid regurgitation. Carotid US was insignificant; Plaque is present in the internal carotid arteries but velocity measurements are normal and there is no evidence to suggest a hemodynamically significant stenosis of greater than 50% diameter reduction. - Patient observed in tele floor for 48 hours, no arythmia was observed - Increase lisinopril to 20 mg daily. Patient was discharged with recommendation to follow in outpatient with his results technician and PCP at [facility]. We recommended him to come back to hospital if symptoms worsen and follow low Na heart healthy. Gait instability Dizziness with gait instability; Peripheral neuropathy or BPPV. Patient has neuropathy for the past 1 year that has been worked up at the [facility]. Currently not on any medications. Gait instability also does not appear new and patient's has ongoing gait instability. Patient has positive nystagmus on both sides. - PT OT consulted Anxiety and depression; patient was doing fine, planned to place psych consult if continues to have symptoms but he was relatively with no symptoms. DVT prophylaxis; subcutaneous Lovenox Patient is full code heart healthy diet Patient was discharged with recommendations below: 1. Diffuse cutaneous and soft tissue edema and thickening is seen in the dorsum of the foot underlying the patient's erythema, suspicious for cellulitis. 2. Focal superficial irregular complex fluid collection is seen in the dorsum of the forefoot. This may represent a hematoma or a infected fluid collection/abscess. Clinical correlation is requested. Problem List: 1. Hypertensive emergency Plan: As noted above Consulting Request: Consulting Specialty: Neurology Discharge Plan Discharge Disposition: home Stable for Discharge? Yes Anticipated Discharge (Day): today If Discharged Today/In 24 Hrs: CMR done Subjective Follow-up For: Hypertensive emergency Tele-Events Since Last Visit: SR 60-69 Subjective: Patient visited today, completely symptom free to his baseline, was lying in bed comfortably in no acute distress, was alert and oriented. No fever or chills, no shortness of breathing, no chest pain, no other events. Patient was requesting to be discharged. considering evaluations done were negative planned to be discharged with higher dose of blood pressure medications with recommendation to follow outpatient with his caridologist and PCP. Review of Systems Constitutional: Reports: see HPI. Objective Last 24 Hrs of Vital Signs/I&O Vital Signs Date Time Temp Pulse Resp B/P B/P Pulse O2 O2 Flow FiO2 Mean Ox Delivery Rate 12/03 1013 62 120/68 12/03 0543 97.0 62 20 122/82 96 12/03 0541 97.0 62 20 122/82 96 12/02 2248 97.6 63 20 162/86 98 Room Air 12/022 97.8 68 16 145/72 96 Room Air 12/02 2054 97.8 71 19 168/81 96 Room Air 12/02 1730 97.8 66 18 176/90 99 Room Air Intake & Output 12/03 1600 12/03 0800 12/03 0000 Intake Total 200 Output Total Balance 200 Intake, Oral 200 Patient 159 lb Weight Physical Exam General Appearance: Alert, Oriented X3, Cooperative, No Acute Distress Skin: No Significant Lesion Sepsis Skin Exam (color): Normal for Ethnicity HEENT: Atraumatic, EOMI, Mucous Membr. moist/pink Cardiovascular: Regular Rate, Normal S1, Normal S2 Lungs: Clear to Auscultation Abdomen: Soft, No Tenderness Neurological: Normal Speech, Strength at 5/5 X4 Ext, in baseline, no change compared to yesterday Extremities: No Edema Current Medications: Current Medications Sig/Gigi Start time Last Medication Dose Route Stop Time Status Admin Acetaminophen 0 .STK-MED ONE 12/02 2022 DC PO Acetaminophen 650 MG ONCE ONE 12/02 2014 DC 12/02 PO 12/02 Amlodipine Besylate 5 MG DAILY 12/03 1000 CAN PO Aspirin Buffered 81 MG DAILY 12/02 1000 DCD 12/03 PO 1014 Atorvastatin Calcium 40 MG 1700 12/01 2330 DCD 12/02 PO 1624 Enoxaparin Sodium 40 MG DAILY 12/02 1000 DCD 12/03 SC 1014 Lisinopril 20 MG DAILY 12/02 1000 DCD 12/03 PO 1013 Magnesium Chloride 64 MG DAILY 12/02 1000 DC 12/03 PO 12/03 1001 1014 Phosphate 250 MG PC AND AT BEDTIME 12/02 0900 DCD 12/02 PO 2033 Last 24 Hrs of Labs/Mics: Laboratory Tests 12/03/17 0613: CBC w Diff NO MAN DIFF REQ, RBC 4.03 L, MCV 95.6 H, MCH 32.5 H, MCHC 34.0, RDW 14.5, MPV 9.0, Gran % 66.5, Lymphocytes % 13.1 L, Monocytes % 16.0 H, Eosinophils % 4.2, Basophils % 0.2, Absolute Granulocytes 4.2, Absolute Lymphocytes 0.8 L, Absolute Monocytes 1.0 H, Absolute Eosinophils 0.3, Absolute Basophils 0 Karina Head 12/03/17 1608: Attending MD Review Statement Attending Statement Attending MD Statement: examined this patient, discuss w/resident/PA/STOCK PITCHER, agreed w/resident/PA/STOCK PITCHER, reviewed EMR data (avail), discussed w/nursing, discussed w/ case mgmt Attending Assessment/Plan: pt being discharged . stable. please see dc summary for more details.
[2017-12-03 08:05] LABS: ABSOLUTE BASOPHIL COUNT 0 /CUMM (0.0-0.2); ABSOLUTE EOSINOPHIL COUNT 0.3 /CUMM (0.0-0.7); ABSOLUTE GRANULOCYTE CT 4.2 /CUMM (1.4-6.5); ABSOLUTE LYMPH COUNT 0.8 /CUMM (1.2-3.4); BASOPHIL % 0.2 % (0.0-2.0); EOSINOPHIL % 4.2 % (0-5); GRANULOCYTE % 66.5 % (42.2-75.2); HEMATOCRIT 38.5 % (42-52); MEAN CORPUSCULAR HGB 32.5 PG (27.0-31.0); MEAN CORPUSCULAR VOLUME 95.6 FL (80.0-94.0); PLATELET COUNT 217 /CUMM (130-400); RBC DISTRIBUTION WIDTH 14.5 % (11.5-14.5); RED BLOOD CELL CT 4.03 /CUMM (4.70-6.10); WHITE BLOOD CELL COUNT 6.4 /CUMM (4.8-10.8)
[2017-12-03 10:13] VITALS: BP 120/68
--- NOTE | 2017-12-03 10:19 | ECHOCARDIOGRAM REPORT ---
CHELE ALEXANDER Age: 82 : 1935 Gender: M Exam Date: 12/02/2017 12:28 Exam Location: ER Ht (in): 68 Wt (lb): 173 BSA: 1.95 BP: 132 / 78 Ordering Physician: Cassie Nash MD Referring Physician: Cassie Nash MD Technologist: Roney Kent RDCS Room Number: [id number] Indications: STROKE Rhythm: Sinus Technical Quality: Technically difficult study FINDINGS Left Ventricle Normal size left ventricle. Proximal thickening of the septum. Normal left ventricular ejection fraction visually estimated at > 60 %. Abnormal relaxation filling pattern of the left ventricle for age (stage 1 diastolic dysfunction). Right Ventricle Normal right ventricular size and function. Right Atrium Normal right atrial size. Left Atrium Normal left atrial size. Mitral Valve Mild mitral annular calcification. Mild mitral regurgitation. Aortic Valve Aortic valve mildly thickened. Trace aortic regurgitation. No aortic stenosis. Tricuspid Valve Tricuspid valve not well visualized, grossly normal. Trace tricuspid regurgitation. Pulmonic Valve Pulmonic valve not well visualized. Pericardium No pericardial effusion. Great Vessels Aortic root and proximal ascending aorta not well visualized. CONCLUSIONS Normal size left ventricle. Proximal thickening of the septum. Normal left ventricular ejection fraction visually estimated at > 60 %. Abnormal relaxation filling pattern of the left ventricle for age (stage 1 diastolic dysfunction). Mild mitral regurgitation. Trace aortic regurgitation. Trace tricuspid regurgitation. Jam Duval M.D. (Electronically Signed) Final Date: 03 December 2017 10:18 MEASUREMENTS (Male / Female) Normal Values 2D ECHO LV Ejection Fraction MOD BP 61.8 % >= 55 % LV Cardiac Index MOD BP 1526.4 cm/minm LV Diastolic Length 4C 7.5 cm 6.9 - 10.3 cm LV Diastolic Area 4C 27.1 cm LV Diastolic Volume MOD 4C 81.0 cm LV Ejection Fraction MOD 4C 60.5 % LV Stroke Volume MOD 4C 49.0 cm LV Cardiac Index MOD 4C 1780.8 cm/minm LV Systolic Length 4C 6.5 cm LV Systolic Area 4C 15.2 cm LV Systolic Volume MOD 4C 32.0 cm LV Ejection Fraction MOD 2C 63.6 % LV Cardiac Index MOD 2C 1272.0 cm/minm LV Diastolic Volume 4C AL 83.6 cm 85 - 139 / 69 - 109 cm LV Systolic Volume 4C AL 30.4 cm LV Ejection Fraction 4C AL 63.7 % LV Stroke Volume 4C AL 53.2 cm LV Cardiac Index 4C AL 1934.0 cm/minm LV Ejection Fraction 2C AL 66.1 % LV Cardiac Index 2C AL 1397.9 cm/minm LA Volume 36.0 cm 18 - 58 / 22 - 52 cm DOPPLER AV Peak Velocity 100.0 cm/s AV Peak Gradient 4.0 mmHg LVOT Peak Velocity 89.8 cm/s LVOT Peak Gradient 3.2 mmHg Mitral E Point Velocity 56.3 cm/s Mitral A Point Velocity 107.0 cm/s Mitral E to A Ratio 0.5 MV Deceleration Time 282.0 ms
[2017-12-03] MEDS ORDERED: LISINOPRIL20 M1 PO ×2 (11:29→11:59)
--- NOTE | 2017-12-03 11:42 | Patient Discharge Instructions ---
Discharge Instructions General Discharge Information You were seen/treated for: Hypertansion emergency Watch for these problems: Severe headache, chest pain, dyspnea, new neurologic symptoms, or worsening of symptoms Special Instructions: Please follow with your PCP at [facility] within one week of discharge. Please follow with your bag shaker at [facility], or Dr Duval within one week of discharge. Please note of your medication changed to a higher dose. Please follow accordingly. Please measure your blood pressure regularely and follow with your PCP. Please follow heart healthy low NA diet. If you feel dizziness please take Lisinopril 10mg and contact your PCP. Diet Continue normal diet: No Recommended Diet: Heart Healthy Activity Full Activity/No Limits: No Activity Self Limited: Yes Acute Coronary Syndrome Inclusion Criteria At DC or during hospital stay patient has or had the following: ACS DIAGNOSIS No Discharge Core Measures Meds if any: Prescribed or Continued at Discharge Meds if any: NOT Prescribed or Continued at Discharge Congestive Heart Failure Inclusion Criteria At [facility] or during hospital stay patient has or had the following: CHF DIAGNOSIS No Discharge Core Measures Meds if any: Prescribed or Continued at Discharge Meds if any: NOT Prescribed or Continued at Discharge Cerebrovascular accident Inclusion Criteria At [facility] or during hospital stay patient has or had the following: CVA/TIA Diagnosis No Discharge Core Measures Meds if any: Prescribed or Continued at Discharge Meds if any: NOT Prescribed or Continued at Discharge Venous thromboembolism Inclusion Criteria VTE Diagnosis No VTE Type NONE VTE Confirmed by (Test) NONE Discharge Core Measures - Per Current guidelines, there needs to be overlap - treatment for the first 5 days of Warfarin therapy. - If discharged on Warfarin prior to 5 days of - overlap therapy, the patient will need to be - assessed for post discharge needs including - *Post discharge parental anticoagulation - *Warfarin and/or parental anticoagulation education - *Follow up date to check INR post discharge At least 5 days overlap therapy as Inpatient No Meds if any: Prescribed or Continued at Discharge Note: Overlap Therapy is Warfarin and Anticoagulant Meds if any: NOT Prescribed or Continued at Discharge
--- NOTE | 2017-12-03 13:52 | PN- Cardiology ---
Subjective Subjective: The patient reports that he is feeling better. No more neurologic symptoms. No chest pain. No palpitations. No shortness breath. No diaphoresis. Blood pressure is under control. Objective Vital Signs and I&Os Vital Signs Date Time Temp Pulse Resp B/P B/P Pulse O2 O2 Flow FiO2 Mean Ox Delivery Rate 12/03 1013 62 120/68 12/03 0543 97.0 62 20 122/82 96 12/03 0541 97.0 62 20 122/82 96 12/02 2248 97.6 63 20 162/86 98 Room Air 12/02 2222 97.8 68 16 145/72 96 Room Air 12/02 2055 97.8 71 19 168/81 96 Room Air 12/02 1730 97.8 66 18 176/90 99 Room Air 12/02 1449 98.0 74 18 154/88 97 Room Air Intake & Output 12/03 1600 12/03 0800 12/03 0000 12/02 1600 12/02 0800 12/02 0000 Intake Total 200 200 100 Output Total 400 Balance 200 200 -300 Intake, Oral 200 200 100 Output, Urine 400 Patient 159 lb 159 lb Weight Weight Reported by Patient Measurement Method Physical Exam: Gen: The patient is in no acute distress HEENT: Normal nose, ears, and oropharynx. Pupils equal bilaterally. Conjunctiva normal. Neck: Supple with no JVD, no masses, and no thyromegaly Lungs: Clear to auscultation with normal respiratory effort Heart: RRR, S1, S2, no murmurs. No peripheral edema, 2+ pulses in the lower extremities bilaterally Abdomen: Soft, nontender, no masses. No hepatomegaly. No splenomegaly Extremities: No clubbing or cyanosis. Normal muscle strength in the upper and lower extremities Skin: Normal skin turgor with no skin ulcers or lesions noted. Neuro: Cranial nerves intact. Sensation intact Current Medications: Current Medications Sig/Gigi Start time Last Medication Dose Route Stop Time Status Admin Acetaminophen 0 .STK-MED ONE 12/02 2022 DC PO Acetaminophen 650 MG ONCE ONE 12/02 2014 DC 12/02 PO 12/02 Amlodipine Besylate 5 MG DAILY 12/03 1000 CAN PO Aspirin Buffered 81 MG DAILY 12/02 1000 AC 12/03 PO 1014 Atorvastatin Calcium 40 MG 1700 12/01 2330 AC 12/02 PO 1624 Enoxaparin Sodium 40 MG DAILY 12/02 1000 AC 12/03 SC 1014 Lisinopril 20 MG DAILY 12/02 1000 AC 12/03 PO 1013 Magnesium Chloride 64 MG DAILY 12/02 1000 DC 12/03 PO 12/03 1001 1014 Phosphate 250 MG PC AND AT BEDTIME 12/02 0900 AC 12/02 PO 2032 Results Last 48 Hrs of Labs/Mics: Laboratory Tests 12/03/17 0613: CBC w Diff NO MAN DIFF REQ, RBC 4.03 L, MCV 95.6 H, MCH 32.5 H, MCHC 34.0, RDW 14.5, MPV 9.0, Gran % 66.5, Lymphocytes % 13.1 L, Monocytes % 16.0 H, Eosinophils % 4.2, Basophils % 0.2, Absolute Granulocytes 4.2, Absolute Lymphocytes 0.8 L, Absolute Monocytes 1.0 H, Absolute Eosinophils 0.3, Absolute Basophils 0 12/02/17 0635: Anion Gap 11, Estimated GFR > 60, BUN/Creatinine Ratio 25.6 H, Hemoglobin A1c 5.9 H, Troponin I 0.02, Triglycerides 91, Cholesterol 165, LDL Cholesterol, Calc 105, HDL Cholesterol 42, Cholesterol/HDL Ratio 4 12/02/17 0600: CBC w Diff Cancelled, WBC Cancelled, RBC Cancelled, Hgb Cancelled, Hct Cancelled , MCV Cancelled, MCH Cancelled, MCHC Cancelled, RDW Cancelled, Plt Count Cancelled, MPV Cancelled 12/02/17 0115: Troponin I < 0.01 12/01/17 1812: Anion Gap 12, Estimated GFR 58 L, BUN/Creatinine Ratio 20.8, Glucose 105 H, Calcium 8.6, Phosphorus 3.2, Magnesium 1.9, Total Bilirubin 0.3, AST 22, ALT 25, Alkaline Phosphatase 103, Troponin I < 0.01, Total Protein 6.3, Albumin 3.4 L, Globulin 2.9, Albumin/Globulin Ratio 1.2, TSH 2.260, Free T4 1.14, D-Dimer High Sensitivty 283 H, CBC w Diff NO MAN DIFF REQ, RBC 4.37 L, MCV 92.7, MCH 30.6, MCHC 33.0, RDW 14.5, MPV 7.8, Gran % 63.2, Lymphocytes % 17.5 L, Monocytes % 14.2 H, Eosinophils % 4.9, Basophils % 0.2, Absolute Granulocytes 4.0, Absolute Lymphocytes 1.1 L, Absolute Monocytes 0.9 H, Absolute Eosinophils 0.3, Absolute Basophils 0 Recent Imaging Studies: Echocardiogram: CONCLUSIONS Normal size left ventricle. Proximal thickening of the septum. Normal left ventricular ejection fraction visually estimated at > 60 %. Abnormal relaxation filling pattern of the left ventricle for age (stage 1 diastolic dysfunction). Mild mitral regurgitation. Trace aortic regurgitation. Trace tricuspid regurgitation. Assessment/Plan Assessment/Plan Assessment: 1. Hypertensive urgency, improved 2. Possible TIA versus symptomatic hypertension 3. Normal left ventricular function on echo 4. No obstructive disease and carotid Doppler study Plan: * Okay for discharge from cardiac standpoint * Continue lisinopril, aspirin, and atorvastatin * Follow up in the office in 1-2 weeks. Continue telemetry? No
== END 2017-12-03 14:10 ==
LOC: ERH 17:55 → ERHI 22:03 → 1NO 22:03 → ERHI 12-02 04:46 → ENRESERV 12-02 22:05 → ENTRNSPT 12-02 22:29 → 1NO 12-02 22:38 → CMPTRNSPT 12-02 22:45 → ENPENDDIS 12-03 12:09 → 1NO 12-03 14:10
PROVIDERS: Physician Assistant; Radiology Vascular & Interventional Radiology; Student in an Organized Health Care Education/Training Program
DX: I16.0 Hypertensive urgency (principal); Z79.82 Long term (current) use of aspirin; G45.4 Transient global amnesia; R26.9 Unspecified abnormalities of gait and mobility; H40.9 Unspecified glaucoma; K57.92 Diverticulitis of intestine, part unspecified, without perforation or abscess without bleeding; F41.9 Anxiety disorder, unspecified; F32.9 Major depressive disorder, single episode, unspecified; G62.9 Polyneuropathy, unspecified; K21.9 Gastro-esophageal reflux disease without esophagitis; Z87.442 Personal history of urinary calculi; Z85.828 Personal history of other malignant neoplasm of skin; Z85.46 Personal history of malignant neoplasm of prostate
CPT/HCPCS: 6020; 70551; 36415; 71046; 82436; 93005; 93010; 93306; 96372; 97116-GP; 97161-GP; 97165-GO; G0378; J1650